=== PATIENT | female | born 1950 | race Caucasian/White ===

== ENCOUNTER 2017-05-02 16:19 | Emergency (ER) | payer OTHER ==
[~2017-05-02] VITALS: Ht 157.5 cm; Wt 90.9 kg
[~2017-05-02 16:19] MED LIST: ADVAIR 250/501 DISK IH; AMLODIPINE BESYL5 MG PO; ASPIR 8181 M1 PO; ATORVASTATIN CA10 MG PO; AUGMENTIN875 MG PO; BACLOFEN10 MG PO; Baclofen PO; CATAPRES0.1 MG PO; CEFUROXIME500 MG PO; CLARITIN10 M3 PO; CLONAZEPAM0.5 MG PO; CLONIDINE HCL0.1 MG PO; COMBIVENT RESPIM4 GM IH; COMBIVENT200 INHALA IH; CRANBERRY TABL1 EACH PO; CYMBALTA20 MG PO; CYMBALTA60 MG PO; Combivent IH; Cymbalta PO; DAILY VALUE1 EACH PO; DEPAKENE250 MG PO; DIVALPROEX SOD500 MG PO; ENDOCET 5-3251 EACH PO; FLAGYL500 MG PO; FLONASE16 G1 BOTH NARES; FLORASTOR250 MG PO; FLOVENT DISKUS1 DIS2 IH; FUROSEMIDE20 MG PO; Flonase BOTH NARES; GLIPIZIDE10 MG PO; GLUCOPHAGE1000 MG PO; GLUCOPHAGE500 MG PO; GLUCOTROL10 MG PO; Glucophage PO; Glucotrol PO; IBUPROFEN800 MG PO; JANUVIA100 MG PO; JANUVIA25 MG PO; KEFLEX500 MG PO; KETOCONAZOLE60 GM TP; KLONOPIN0.5 M1 PO; KlonoPIN PO; Klonopin PO; LANTUS 10100 UNITS/ SC; LANTUS 3 M100 UNITS1 SC; LEVAQUIN500 MG PO; LIPITOR10 MG PO; LISINOPRIL40 MG PO; LO-DOSE ASPIRIN81 M1 PO; LORAZEPAM0.5 MG PO; LYRICA150 MG PO; Lioresal PO; Lyrica PO; MELOXICAM15 MG PO; METFORMIN HCL1000 MG PO; METFORMIN HCL500 MG PO; MIRALAX, GLYCOL1 PK1 PO; MOBIC15 MG PO; MOBIC7.5 MG PO; MUCINEX D ER T1 EACH PO; MUCINEX600 MG PO; NICOTINE PATCH1 EAC2 TD; NOVOLOG PE100 UNITS/ SC; OCUVITE TABLET1 EACH PO; OXYBUTYNIN CHLOR5 MG PO; OXYCODONE-ACET1 EACH PO; PERCOCET 10/1 TABLET PO; PERCOCET 5/31 TABLET PO; PLAVIX75 MG PO; PROVENTIL,2.5 MG/3 M IH; Percocet 5/325,Endoc PO; QUETIAPINE FUM300 MG PO; SEROQUEL XR150 MG PO; SEROQUEL300 MG PO; SEROquel PO; TRILIPIX135 MG PO; Vancomycin IV; WOMEN'S 50+ DA1 EACH PO
[2017-05-02 17:39] LABS: HEMATOCRIT 40.2 % (36.0-46.0); MCH 29.8 PG (29.0-34.0); MCHC 31.3 G/DL (30.0-36.0); MEAN PLAT.VOLUME 9.9 uM^3 (9.5-12.4); PLATELET COUNT 219 K/uL (156-360); RBC DIS.WIDTH-CV 14.4 % (11.8-14.6); RBC DIS.WIDTH-SD 50.5 % (39-53); RED BLOOD COUNT 4.23 M/uL (3.80-5.20); WHITE BLOOD COUNT 11.1 K/uL (4.1-10.2)
[2017-05-02 17:50] LABS: CHLORIDE 107 mEq/L (99-109); POTASSIUM 5.2 mEq/L (3.7-5.4); SODIUM 137 mEq/L (136-147)
[2017-05-02 17:53] LABS: ANION GAP 9 MEQ/L (2-14)
[2017-05-02 17:55] LABS: GFR ESTIMATE (CALCULATED) 53 mL/min/
[2017-05-02 17:56] LABS: UREA NITROGEN (BUN) 22 mg/dL (9-23)
[2017-05-02 18:10] LABS: GLUCOSE 430 mg/dL (70-99)
[2017-05-02 20:28] LABS: ADD MIUA? YES; BILIRUBIN NEGATIVE; BLOOD NEGATIVE; COLOR YELLOW ((YELLOW)); GLUCOSE (STRIP) >=500; KETONES NEGATIVE; LEUKOCYTES SMALL; NITRITE NEGATIVE; PROTEIN (STRIP) 100; SPECIFIC GRAVITY 1.016 (1.000-1.030); UROBILINOGEN 0.2 MG/DL (0.2-1.0)
[2017-05-02 20:34] LABS: BACTERIA NONE SEEN /HPF; EPITHELIAL CELLS RARE /HPF; HYALINE CASTS 0-5 /LPF; MUCUS TRACE /LPF; UCUL ADDED? NO
[2017-05-02 20:43] LABS: POINT-OF-CARE METER ID UU13113702
[2017-05-02] MEDS ORDERED: GLUCOTROL10 MG PO (21:27)
[2017-05-02 21:44] VITALS: BP 118/30
== END 2017-05-02 21:45 | disposition home or self-care (01) ==
LOC: EME 16:19
PROVIDERS: Emergency Medicine
DX: E11.65 Type 2 diabetes mellitus with hyperglycemia (principal); Z79.84 Long term (current) use of oral hypoglycemic drugs; I10 Essential (primary) hypertension; J44.9 Chronic obstructive pulmonary disease, unspecified; Z86.73 Personal history of transient ischemic attack (TIA), and cerebral infarction without residual deficits; F32.9 Major depressive disorder, single episode, unspecified; F17.200 Nicotine dependence, unspecified, uncomplicated; Z89.411 Acquired absence of right great toe; Z79.02 Long term (current) use of antithrombotics/antiplatelets; Z79.82 Long term (current) use of aspirin
CPT/HCPCS: 71020; 80048; 81003; 82948; 85027; 87086; 99281; 99285; J7030

== ENCOUNTER 2017-05-11 22:43 | Inpatient (IN) | payer OTHER ==
[~2017-05-11] VITALS: Ht 160 cm; Wt 86.2 kg
[2017-05-11 23:18] LABS: HEMATOCRIT 39.9 % (36.0-46.0); MCH 30.6 PG (29.0-34.0); MCHC 33.1 G/DL (30.0-36.0); MCV 92.6 FL (83-99); MEAN PLAT.VOLUME 10.1 uM^3 (9.5-12.4); PLATELET COUNT 204 K/uL (156-360); RBC DIS.WIDTH-CV 14.2 % (11.8-14.6); RBC DIS.WIDTH-SD 48.3 % (39-53); RED BLOOD COUNT 4.31 M/uL (3.80-5.20); WHITE BLOOD COUNT 12.4 K/uL (4.1-10.2)
[2017-05-11 23:35] LABS: CHLORIDE 109 mEq/L (99-109); POTASSIUM 4.8 mEq/L (3.7-5.4); SODIUM 137 mEq/L (136-147)
[2017-05-11 23:38] LABS: GLUCOSE 364 mg/dL (70-99); PROTHROMBIN TIME 9.9 (9.2-11.2); PTT 22.9 (25-32)
[2017-05-11 23:39] LABS: ANION GAP 14 MEQ/L (2-14)
[2017-05-11 23:40] LABS: CARBON DIOXIDE (BICARBONATE) 18.7 MEQ/L (20-31); TOTAL BILIRUBIN 0.3 mg/dL (0.0-1.0)
[2017-05-11 23:41] LABS: ALKALINE PHOSPHATASE 129 IU/L (3-129); GFR ESTIMATE (CALCULATED) > 59 mL/min/
[2017-05-11 23:42] LABS: UREA NITROGEN (BUN) 21 mg/dL (9-23)
[2017-05-11 23:45] LABS: LIPASE 17 U/L (1.0-51.0)
[2017-05-11 23:47] LABS: TROP-I INTERPRETATION NEGATIVE; TROPONIN-I < 0.01 ng/mL (0.0-0.30)
[2017-05-12 03:21] LABS: ADD MIUA? YES; BILIRUBIN NEGATIVE; BLOOD NEGATIVE; COLOR YELLOW ((YELLOW)); GLUCOSE (STRIP) >=500; KETONES NEGATIVE; LEUKOCYTES SMALL; NITRITE NEGATIVE; PROTEIN (STRIP) 100; SPECIFIC GRAVITY 1.025 (1.000-1.030); UROBILINOGEN 0.2 MG/DL (0.2-1.0)
[2017-05-12 03:26] LABS: BACTERIA NONE SEEN /HPF; EPITHELIAL CELLS RARE /HPF; MUCUS TRACE /LPF; RED BLOOD CELLS 0-5 /HPF (0-5); UCUL ADDED? NO
[2017-05-12 04:05] LABS: SAMPLE HEMOLYSIS CHECK 0; SAMPLE ICTERIC CHECK 0; SAMPLE LIPEMIA CHECK 0
[2017-05-12 05:35] LABS: EOSINOPHIL (%) 0.4 % (0-5); EOSINOPHIL COUNT 0.1 K/uL (0-0.3); IMMATURE GRANULOCYTE (%) 0.6 % (0.0-0.7); IMMATURE GRANULOCYTE COUNT 0.1 K/uL; INSTRUMENT ABS NEUTROPHIL CT 11.1 K/uL; LYMPHOCYTE COUNT 0.8 K/uL (1.0-2.8); MCH 30.3 PG (29.0-34.0); MCHC 32.1 G/DL (30.0-36.0); MCV 94.3 FL (83-99); MEAN PLAT.VOLUME 10.3 uM^3 (9.5-12.4); MONOCYTE (%) 3.5 % (3-12); MONOCYTE COUNT 0.4 K/uL (0-0.8); NEUTROPHIL (%) 89.1 % (45-76); NEUTROPHIL COUNT 11.1 K/uL (1.8-6.4); PLATELET COUNT 180 K/uL (156-360); RBC DIS.WIDTH-CV 14.3 % (11.8-14.6); RBC DIS.WIDTH-SD 49.9 % (39-53); RED BLOOD COUNT 4.03 M/uL (3.80-5.20); WHITE BLOOD COUNT 12.5 K/uL (4.1-10.2)
[2017-05-12 05:43] LABS: CHLORIDE 112 mEq/L (99-109); POTASSIUM 5.2 mEq/L (3.7-5.4); SODIUM 140 mEq/L (136-147)
[2017-05-12 05:45] LABS: GLUCOSE 301 mg/dL (70-99)
[2017-05-12 05:47] LABS: ANION GAP 12 MEQ/L (2-14)
[2017-05-12 05:49] LABS: ALKALINE PHOSPHATASE 121 IU/L (3-129); GFR ESTIMATE (CALCULATED) > 59 mL/min/
[2017-05-12 05:50] LABS: UREA NITROGEN (BUN) 18 mg/dL (9-23)
[2017-05-12 05:58] LABS: CARBON DIOXIDE (BICARBONATE) 21.1 MEQ/L (20-31)
[2017-05-12 06:06] LABS: TOTAL BILIRUBIN 0.2 mg/dL (0.0-1.0)
[2017-05-12 06:39] LABS: LIPASE 13 U/L (1.0-51.0)
[2017-05-12 06:58] LABS: TROP-I INTERPRETATION NEGATIVE; TROPONIN-I < 0.01 ng/mL (0.0-0.30)
[2017-05-12 08:32] LABS: CARBON DIOXIDE (BICARBONATE) 20.7 MEQ/L (20-31)
[2017-05-12] MEDS ORDERED: METFORMIN HCL500 MG PO (09:58)
[2017-05-12] MEDS ORDERED: LISINOPRIL40 MG PO (09:58)
[2017-05-12] MEDS ORDERED: QUETIAPINE FUM300 MG PO (09:59)
[2017-05-12] MEDS ORDERED: RANITIDINE HCL150 MG PO (09:59)
[2017-05-12] MEDS ORDERED: LITHIUM CARBON300 M2 PO (10:00)
[2017-05-12] MEDS ORDERED: LYRICA150 MG PO (10:00)
[2017-05-12] MEDS ORDERED: FLONASE16 G1 BOTH NARES (10:00)
[2017-05-12] MEDS ORDERED: TRULICITY0.75 MG/0. SC (10:00)
[2017-05-12] MEDS ORDERED: BACLOFEN10 MG PO (10:00)
[2017-05-12] MEDS ORDERED: MELOXICAM15 MG PO (10:00)
[2017-05-12] MEDS ORDERED: CLONIDINE HCL0.1 MG PO (10:00)
[2017-05-12] MEDS ORDERED: CLONAZEPAM0.5 MG PO (10:01)
[2017-05-12] MEDS ORDERED: PERCOCET 10/1 TABLET PO (10:06)
[2017-05-12 10:22] LABS: Estimated Average Glucose 180 mg/dL (70-123)
[2017-05-12 10:25] LABS: HEMOGLOBIN A1c (GLYCOHEMOGLOB) 7.9 % HGB (Below 5.7)
[2017-05-12 14:43] VITALS: BP 138/61
[2017-05-12 16:30] LABS: POINT-OF-CARE METER ID UU14188625
[2017-05-12 19:20] VITALS: BP 137/63
[2017-05-12 21:42] LABS: POINT-OF-CARE METER ID UU14174225
[2017-05-12 23:45] VITALS: BP 153/67
[2017-05-13 01:49] LABS: POINT-OF-CARE METER ID UU14188625; POINT-OF-CARE USER ID BHSKTD
[2017-05-13 04:00] VITALS: BP 133/64
[2017-05-13 05:55] LABS: POINT-OF-CARE METER ID UU14188625
[2017-05-13 06:04] LABS: EOSINOPHIL (%) 6.5 % (0-5); EOSINOPHIL COUNT 0.5 K/uL (0-0.3); HEMATOCRIT 33.8 % (36.0-46.0); IMMATURE GRANULOCYTE (%) 0.6 % (0.0-0.7); INSTRUMENT ABS NEUTROPHIL CT 5.3 K/uL; LYMPHOCYTE COUNT 0.8 K/uL (1.0-2.8); MCH 30.3 PG (29.0-34.0); MCHC 32.2 G/DL (30.0-36.0); MCV 93.9 FL (83-99); MEAN PLAT.VOLUME 10.1 uM^3 (9.5-12.4); MONOCYTE COUNT 0.4 K/uL (0-0.8); NEUTROPHIL COUNT 5.3 K/uL (1.8-6.4); PLATELET COUNT 175 K/uL (156-360); RBC DIS.WIDTH-CV 14.4 % (11.8-14.6); RBC DIS.WIDTH-SD 49.7 % (39-53)
[2017-05-13 06:30] LABS: ALKALINE PHOSPHATASE 92 IU/L (3-129); ANION GAP 6 MEQ/L (2-14); CHLORIDE 114 MEQ/L (99-109); GFR ESTIMATE (CALCULATED) > 59 mL/min/; POTASSIUM 4.4 MEQ/L (3.7-5.4); SAMPLE HEMOLYSIS CHECK 0; SAMPLE ICTERIC CHECK 0; SAMPLE LIPEMIA CHECK 0; SODIUM 143 MEQ/L (136-147); TOTAL BILIRUBIN 0.3 MG/DL (0.0-1.0); UREA NITROGEN (BUN) 13 mg/dL (9-23)
[2017-05-13 06:31] LABS: GLUCOSE 123 mg/dL (70-99)
[2017-05-13 07:37] VITALS: BP 147/64
[2017-05-13 11:13] VITALS: BP 133/66
[2017-05-13] MEDS ORDERED: SPIRIVA1 INHALATI IH (13:17)
[2017-05-13] MEDS ORDERED: PREDNISONE10 MG PO (13:17)
[2017-05-13] MEDS ORDERED: LEVAQUIN750 MG PO (13:17)
[2017-05-13] MEDS ORDERED: VENTOLIN HFA18 GM IH (13:17)
[2017-05-14 22:32] LABS: POINT-OF-CARE METER ID UU14188625
== END 2017-05-13 15:20 | disposition home or self-care (01) | DRG 871 ==
LOC: EME → EDBD 22:43 → EME 22:43 → EDOF 05-12 03:37 → 5SOUTH 05-12 14:35
PROVIDERS: Emergency Medicine; Hospitalist; Physician Assistant Medical
DX: A41.9 Sepsis, unspecified organism (principal); E11.65 Type 2 diabetes mellitus with hyperglycemia; J18.1 Lobar pneumonia, unspecified organism; E87.2 Acidosis; E11.40 Type 2 diabetes mellitus with diabetic neuropathy, unspecified; E78.5 Hyperlipidemia, unspecified; Z86.73 Personal history of transient ischemic attack (TIA), and cerebral infarction without residual deficits; F31.9 Bipolar disorder, unspecified; F17.210 Nicotine dependence, cigarettes, uncomplicated; E66.9 Obesity, unspecified; Z68.33 Body mass index [BMI] 33.0-33.9, adult; I10 Essential (primary) hypertension; J44.0 Chronic obstructive pulmonary disease with (acute) lower respiratory infection; K59.00 Constipation, unspecified; J44.1 Chronic obstructive pulmonary disease with (acute) exacerbation; G40.909 Epilepsy, unspecified, not intractable, without status epilepticus
CPT/HCPCS: 71010; 71020; 71275; 72131; 74176; 80053; 80164; 81003; 82010; 82803; 82948; 83036; 83605; 83690; 83880; 84484; 85025; 85027; 85610; 85730; 87040; 87070; 87205; 93005; 93306; 94640; 94640 76; 94799; 99202; 99281; 99285; J0696; J1650; J1815; J2405; J2543; J3370; J7050; J7120; J7644

== ENCOUNTER 2017-05-14 20:13 | Emergency (ER) | payer OTHER ==
[~2017-05-14] VITALS: Ht 162.6 cm; Wt 83.8 kg
[~2017-05-14 20:13] MED LIST changes: +LEVAQUIN750 MG PO; +LITHIUM CARBON300 M2 PO; +PREDNISONE10 MG PO; +RANITIDINE HCL150 MG PO; +SPIRIVA1 INHALATI IH; +TRULICITY0.75 MG/0. SC; +VENTOLIN HFA18 GM IH
[2017-05-14 21:46] LABS: HEMATOCRIT 38.6 % (36.0-46.0); MCH 30.6 PG (29.0-34.0); MCHC 34.2 G/DL (30.0-36.0); MEAN PLAT.VOLUME 9.9 uM^3 (9.5-12.4); RBC DIS.WIDTH-CV 13.4 % (11.8-14.6); RBC DIS.WIDTH-SD 44.4 % (39-53); RED BLOOD COUNT 4.32 M/uL (3.80-5.20); WHITE BLOOD COUNT 12.3 K/uL (4.1-10.2)
[2017-05-14 21:47] LABS: CHLORIDE 104 mEq/L (99-109); MCV 89.4 FL (83-99); PLATELET COUNT 256 K/uL (156-360)
[2017-05-14 21:48] LABS: SODIUM 138 mEq/L (136-147)
[2017-05-14 21:49] LABS: POTASSIUM 3.4 mEq/L (3.7-5.4)
[2017-05-14 21:51] LABS: ANION GAP 14 MEQ/L (2-14)
[2017-05-14 21:52] LABS: GLUCOSE 200 mg/dL (70-99); TOTAL BILIRUBIN 0.3 mg/dL (0.0-1.0)
[2017-05-14 21:53] LABS: ALKALINE PHOSPHATASE 118 IU/L (3-129); GFR ESTIMATE (CALCULATED) > 59 mL/min/
[2017-05-14 21:55] LABS: UREA NITROGEN (BUN) 12 mg/dL (9-23)
[2017-05-15 00:56] LABS: ADD MIUA? YES; BILIRUBIN NEGATIVE; BLOOD NEGATIVE; COLOR YELLOW ((YELLOW)); GLUCOSE (STRIP) NEGATIVE; KETONES 20; LEUKOCYTES NEGATIVE; NITRITE NEGATIVE; PROTEIN (STRIP) >=500; SPECIFIC GRAVITY 1.042 (1.000-1.030); UROBILINOGEN 0.2 MG/DL (0.2-1.0)
[2017-05-15 01:01] LABS: BACTERIA NONE SEEN /HPF; EPITHELIAL CELLS RARE /HPF; MUCUS TRACE /LPF; RED BLOOD CELLS 0-5 /HPF (0-5); UCUL ADDED? NO; WHITE BLOOD CELLS 0-5 /HPF (0-5)
[2017-05-15 03:21] VITALS: BP 158/73
[2017-05-15] MEDS ORDERED: ZOFRAN4 MG PO (03:27)
[2017-05-15] MEDS ORDERED: TYLENOL WITH C1 EACH PO (03:27)
== END 2017-05-15 03:35 | disposition home or self-care (01) ==
LOC: EME 20:13
PROVIDERS: Emergency Medicine
DX: R10.30 Lower abdominal pain, unspecified (principal); R19.7 Diarrhea, unspecified; E11.65 Type 2 diabetes mellitus with hyperglycemia; Z79.84 Long term (current) use of oral hypoglycemic drugs; D72.829 Elevated white blood cell count, unspecified; I10 Essential (primary) hypertension; Z86.73 Personal history of transient ischemic attack (TIA), and cerebral infarction without residual deficits; F32.9 Major depressive disorder, single episode, unspecified; F17.200 Nicotine dependence, unspecified, uncomplicated; Z87.01 Personal history of pneumonia (recurrent)
CPT/HCPCS: 71020; 74177; 80053; 81003; 85027; 99281; 99285; J2405; J7030

== ENCOUNTER 2017-05-24 15:40 | Inpatient (IN) | payer OTHER ==
[~2017-05-24] VITALS: Ht 162.6 cm; Wt 88.8 kg
[~2017-05-24 15:40] MED LIST changes: +TYLENOL WITH C1 EACH PO; +ZOFRAN4 MG PO
[2017-05-24 16:38] LABS: BASOPHIL COUNT 0.1 K/uL (0-0.1); EOSINOPHIL (%) 2.8 % (0-5); EOSINOPHIL COUNT 0.5 K/uL (0-0.3); HEMATOCRIT 43.6 % (36.0-46.0); IMMATURE GRANULOCYTE (%) 0.9 % (0.0-0.7); IMMATURE GRANULOCYTE COUNT 0.2 K/uL; INSTRUMENT ABS NEUTROPHIL CT 13.7 K/uL; LYMPHOCYTE COUNT 2.2 K/uL (1.0-2.8); MCH 30.4 PG (29.0-34.0); MCHC 32.8 G/DL (30.0-36.0); MCV 92.6 FL (83-99); MEAN PLAT.VOLUME 9.8 uM^3 (9.5-12.4); MONOCYTE (%) 6.2 % (3-12); MONOCYTE COUNT 1.1 K/uL (0-0.8); NEUTROPHIL (%) 77.6 % (45-76); NEUTROPHIL COUNT 13.7 K/uL (1.8-6.4); PLATELET COUNT 249 K/uL (156-360); RBC DIS.WIDTH-CV 14.6 % (11.8-14.6); RBC DIS.WIDTH-SD 49.4 % (39-53); RED BLOOD COUNT 4.71 M/uL (3.80-5.20); WHITE BLOOD COUNT 17.6 K/uL (4.1-10.2)
[2017-05-24 17:02] LABS: TROP-I INTERPRETATION NEGATIVE; TROPONIN-I < 0.01 ng/mL (0.0-0.30)
[2017-05-24 17:31] LABS: CHLORIDE 110 mEq/L (99-109); SODIUM 142 mEq/L (136-147)
[2017-05-24 17:33] LABS: GLUCOSE 138 mg/dL (70-99)
[2017-05-24 17:34] LABS: ANION GAP 9 MEQ/L (2-14)
[2017-05-24 17:35] LABS: TOTAL BILIRUBIN 0.3 mg/dL (0.0-1.0)
[2017-05-24 17:36] LABS: SERUM ETHYL ALCOHOL < 10 mg/dL
[2017-05-24 17:37] LABS: GFR ESTIMATE (CALCULATED) > 59 mL/min/
[2017-05-24 17:38] LABS: ALKALINE PHOSPHATASE 97 IU/L (3-129); POTASSIUM 5.2 mEq/L (3.7-5.4)
[2017-05-24 17:39] LABS: UREA NITROGEN (BUN) 19 mg/dL (9-23)
[2017-05-24 17:40] LABS: SALICYLATE < 5.0 MG/DL (15-30)
[2017-05-24 17:41] LABS: CREATINE KINASE 39 IU/L (1-294); TOTAL CK 39 IU/L (1-294)
[2017-05-24 17:47] LABS: CK-MB 1.1 ng/mL (0.0-4.9)
[2017-05-24] MEDS ORDERED: PROVENTIL,2.5 MG/3 M IH (21:07)
[2017-05-24] MEDS ORDERED: ADVAIR 250/501 DISK IH (21:08)
[2017-05-24 21:11] LABS: ADD MIUA? YES; BILIRUBIN NEGATIVE; BLOOD NEGATIVE; COLOR YELLOW ((YELLOW)); GLUCOSE (STRIP) NEGATIVE; KETONES NEGATIVE; LEUKOCYTES NEGATIVE; NITRITE NEGATIVE; PROTEIN (STRIP) 100; SPECIFIC GRAVITY 1.012 (1.000-1.030); UROBILINOGEN 0.2 MG/DL (0.2-1.0)
[2017-05-24] MEDS ORDERED: SPIRIVA1 INHALATI IH (21:15)
[2017-05-24] MEDS ORDERED: PROAIR HFA8.5 GM IH (21:16)
[2017-05-24 21:18] LABS: BACTERIA NONE SEEN /HPF; EPITHELIAL CELLS NONE SEEN /HPF; HYALINE CASTS 0-5 /LPF; MUCUS TRACE /LPF; RED BLOOD CELLS 0-5 /HPF (0-5); UCUL ADDED? NO; WHITE BLOOD CELLS 0-5 /HPF (0-5)
[2017-05-24 21:29] LABS: AMPHETAMINE NEGATIVE (500 ng/mL); BENZODIAZEPINES NEGATIVE (150 ng/mL); COCAINE NEGATIVE (150 ng/mL); METHAMPHETAMINE NEGATIVE (500 ng/mL); OPIATES (MORPHINE) NEGATIVE (100 ng/mL); PHENCYCLIDINE NEGATIVE (25 ng/mL); THC CANNABINOIDS NEGATIVE (50 ng/mL); TRICYCLIC ANTIDEPRESSANTS PRESUMPTIVE POSITIVE (300 ng/mL)
[2017-05-24 21:30] LABS: BARBITURATES NEGATIVE (200 ng/mL); INTERNAL CONTROLS VALID? YES; METHADONE NEGATIVE (200 ng/mL); OXYCODONE PRESUMPTIVE POSITIVE (100 ng/mL); PROPOXYPHENE NEGATIVE (300 ng/mL)
[2017-05-24 23:03] LABS: POINT-OF-CARE METER ID UU14188577
[2017-05-25 01:10] LABS: TROP-I INTERPRETATION NEGATIVE; TROPONIN-I < 0.01 ng/mL (0.0-0.30)
[2017-05-25 04:06] VITALS: BP 126/67
[2017-05-25 06:59] LABS: HEMATOCRIT 40.6 % (36.0-46.0); MCH 31.5 PG (29.0-34.0); MCHC 33.7 G/DL (30.0-36.0); MCV 93.3 FL (83-99); MEAN PLAT.VOLUME 10.4 uM^3 (9.5-12.4); PLATELET COUNT 267 K/uL (156-360); RBC DIS.WIDTH-CV 14.8 % (11.8-14.6); RBC DIS.WIDTH-SD 51.4 % (39-53); RED BLOOD COUNT 4.35 M/uL (3.80-5.20); WHITE BLOOD COUNT 20.6 K/uL (4.1-10.2)
[2017-05-25 07:16] LABS: ANION GAP 8 MEQ/L (2-14); CHLORIDE 111 MEQ/L (99-109); GFR ESTIMATE (CALCULATED) > 59 mL/min/; GLUCOSE 141 mg/dL (70-99); POTASSIUM 4.6 MEQ/L (3.7-5.4); SAMPLE HEMOLYSIS CHECK 0; SAMPLE ICTERIC CHECK 0; SAMPLE LIPEMIA CHECK 0; SODIUM 142 MEQ/L (136-147); UREA NITROGEN (BUN) 17 mg/dL (9-23)
[2017-05-25 07:20] LABS: TROPONIN-I < 0.01 ng/mL (0.0-0.30)
[2017-05-25 07:40] LABS: TROP-I INTERPRETATION NEGATIVE
[2017-05-25 08:05] VITALS: BP 170/88
[2017-05-25 12:26] VITALS: BP 149/83
[2017-05-25 16:41] VITALS: BP 142/68
[2017-05-25 16:59] LABS: POINT-OF-CARE METER ID UU14188577
[2017-05-25 20:03] VITALS: BP 169/74
[2017-05-25 21:15] LABS: POINT-OF-CARE METER ID UU14188577
[2017-05-25 23:44] VITALS: BP 148/71
[2017-05-26 08:10] LABS: HEMATOCRIT 37.7 % (36.0-46.0); MCH 30.5 PG (29.0-34.0); MCHC 32.9 G/DL (30.0-36.0); MCV 92.9 FL (83-99); MEAN PLAT.VOLUME 10.1 uM^3 (9.5-12.4); PLATELET COUNT 226 K/uL (156-360); RBC DIS.WIDTH-CV 14.1 % (11.8-14.6); RBC DIS.WIDTH-SD 48.5 % (39-53); RED BLOOD COUNT 4.06 M/uL (3.80-5.20); WHITE BLOOD COUNT 13.9 K/uL (4.1-10.2)
[2017-05-26 08:32] VITALS: BP 150/79
[2017-05-26 08:33] LABS: ANION GAP 7 MEQ/L (2-14); CHLORIDE 108 MEQ/L (99-109); GFR ESTIMATE (CALCULATED) > 59 mL/min/; GLUCOSE 173 mg/dL (70-99); POTASSIUM 5.3 MEQ/L (3.7-5.4); SAMPLE HEMOLYSIS CHECK 0; SAMPLE ICTERIC CHECK 0; SAMPLE LIPEMIA CHECK 0; SODIUM 139 MEQ/L (136-147); UREA NITROGEN (BUN) 16 mg/dL (9-23)
[2017-05-26 11:10] VITALS: BP 140/77
[2017-05-26 12:00] LABS: POINT-OF-CARE METER ID UU14117124
[2017-05-26 15:42] VITALS: BP 198/86
[2017-05-26 16:05] LABS: POINT-OF-CARE METER ID UU14117124
[2017-05-26 19:21] VITALS: BP 137/76
[2017-05-26 21:44] LABS: POINT-OF-CARE METER ID UU14208753
[2017-05-26 23:13] VITALS: BP 162/73
[2017-05-27 03:43] VITALS: BP 138/66
[2017-05-27 06:03] LABS: HEMATOCRIT 36.6 % (36.0-46.0); MCH 30.9 PG (29.0-34.0); MCHC 33.6 G/DL (30.0-36.0); MEAN PLAT.VOLUME 10.5 uM^3 (9.5-12.4); PLATELET COUNT 201 K/uL (156-360); RBC DIS.WIDTH-CV 14.1 % (11.8-14.6); RBC DIS.WIDTH-SD 47.5 % (39-53); RED BLOOD COUNT 3.98 M/uL (3.80-5.20); WHITE BLOOD COUNT 10.7 K/uL (4.1-10.2)
[2017-05-27 06:36] LABS: ANION GAP 11 MEQ/L (2-14); CHLORIDE 109 MEQ/L (99-109); GFR ESTIMATE (CALCULATED) > 59 mL/min/; GLUCOSE 139 mg/dL (70-99); SAMPLE HEMOLYSIS CHECK 0; SAMPLE ICTERIC CHECK 0; SAMPLE LIPEMIA CHECK 0; SODIUM 141 MEQ/L (136-147); UREA NITROGEN (BUN) 15 mg/dL (9-23)
[2017-05-27 06:39] LABS: POTASSIUM 4.2 MEQ/L (3.7-5.4)
[2017-05-27 06:45] LABS: POINT-OF-CARE METER ID UU14208753
[2017-05-27 08:12] VITALS: BP 135/63
[2017-05-27 11:32] LABS: POINT-OF-CARE METER ID UU14208753
[2017-05-27 11:51] VITALS: BP 140/77
[2017-05-27 16:19] LABS: POINT-OF-CARE METER ID UU14208753
[2017-05-27 16:27] VITALS: BP 141/64
[2017-05-27 19:34] VITALS: BP 154/66
[2017-05-27 23:48] VITALS: BP 126/60
[2017-05-28 04:14] VITALS: BP 100/50
[2017-05-28 06:01] VITALS: BP 120/61
[2017-05-28 06:26] LABS: POINT-OF-CARE METER ID UU14208753
[2017-05-28 09:16] LABS: POINT-OF-CARE METER ID UU13113675
[2017-05-28 09:47] VITALS: BP 115/55
[2017-05-28 11:25] LABS: POINT-OF-CARE METER ID UU14208753
[2017-05-28 15:38] VITALS: BP 122/58
[2017-05-28 16:10] LABS: POINT-OF-CARE METER ID UU14208753
[2017-05-28 19:39] VITALS: BP 138/63
[2017-05-29 00:30] VITALS: BP 111/53
[2017-05-29 06:38] LABS: POINT-OF-CARE METER ID UU14208753
[2017-05-29 07:36] LABS: METH RESISTANT S AUREUS PCR NEGATIVE (NEGATIVE); PROBE CHECK PASS; SPECIMEN PROCESSING CONTROL PASS
[2017-05-29 07:51] VITALS: BP 119/57
[2017-05-29 10:10] LABS: MCH 30.7 PG (29.0-34.0); MCHC 32.2 G/DL (30.0-36.0); MCV 95.2 FL (83-99); MEAN PLAT.VOLUME 10.4 uM^3 (9.5-12.4); PLATELET COUNT 217 K/uL (156-360); RBC DIS.WIDTH-CV 14.1 % (11.8-14.6); RBC DIS.WIDTH-SD 48.9 % (39-53); RED BLOOD COUNT 3.78 M/uL (3.80-5.20); WHITE BLOOD COUNT 10.7 K/uL (4.1-10.2)
[2017-05-29 10:44] LABS: ANION GAP 8 MEQ/L (2-14); CHLORIDE 106 MEQ/L (99-109); GFR ESTIMATE (CALCULATED) 48 mL/min/; GLUCOSE 230 mg/dL (70-99); POTASSIUM 4.3 MEQ/L (3.7-5.4); SAMPLE HEMOLYSIS CHECK 0; SAMPLE ICTERIC CHECK 0; SAMPLE LIPEMIA CHECK 0; SODIUM 137 MEQ/L (136-147); UREA NITROGEN (BUN) 32 mg/dL (9-23)
[2017-05-29 11:04] VITALS: BP 115/58
[2017-05-29 11:19] LABS: POINT-OF-CARE METER ID UU14117124
[2017-05-29 12:34] VITALS: BP 153/66
[2017-05-29] MEDS ORDERED: ASPIR 8181 M1 PO (14:57)
[2017-05-29] MEDS ORDERED: NICOTINE PATCH1 EAC2 TD (14:57)
[2017-05-29 15:15] VITALS: BP 132/66
[2017-05-29 15:40] LABS: POINT-OF-CARE METER ID UU14117124
== END 2017-05-29 16:44 | disposition home health service (06) | DRG 563 ==
LOC: EME 15:40 → ENRESERV 20:44 → 3EAST 20:44 → EDOF 20:44 → ENRESERV 21:30 → 3EAST 22:19
PROVIDERS: Emergency Medicine; Hospitalist; Physician Assistant
PROC: 0QSGXZZ Reposition Right Tibia, External Approach (ICD-10-PCS; 2017-05-24)
PROC: 0QSGXZZ Reposition Right Tibia, External Approach (ICD-10-PCS; principal; 2017-05-28)
DX: S82.851A Displaced trimalleolar fracture of right lower leg, initial encounter for closed fracture (principal); F05 Delirium due to known physiological condition; M62.82 Rhabdomyolysis; F23 Brief psychotic disorder; F11.20 Opioid dependence, uncomplicated; E11.42 Type 2 diabetes mellitus with diabetic polyneuropathy; E78.5 Hyperlipidemia, unspecified; F22 Delusional disorders; F31.9 Bipolar disorder, unspecified; W01.0XXA Fall on same level from slipping, tripping and stumbling without subsequent striking against object, initial encounter; G89.4 Chronic pain syndrome; I10 Essential (primary) hypertension; F17.210 Nicotine dependence, cigarettes, uncomplicated; J30.2 Other seasonal allergic rhinitis; K21.9 Gastro-esophageal reflux disease without esophagitis; M48.00 Spinal stenosis, site unspecified; M54.5 Low back pain; T40.601A Poisoning by unspecified narcotics, accidental (unintentional), initial encounter; E66.9 Obesity, unspecified; Z79.82 Long term (current) use of aspirin; Y92.091 Bathroom in other non-institutional residence as the place of occurrence of the external cause; Z89.411 Acquired absence of right great toe; Z90.49 Acquired absence of other specified parts of digestive tract; Z86.73 Personal history of transient ischemic attack (TIA), and cerebral infarction without residual deficits; Z79.84 Long term (current) use of oral hypoglycemic drugs; Z88.5 Allergy status to narcotic agent; Z68.33 Body mass index [BMI] 33.0-33.9, adult
CPT/HCPCS: 70450; 71010; 73590; 73600; 73610; 76000; 80048; 80053; 80178; 81003; 82550; 82553; 82948; 83605; 84484; 85025; 85027; 87641; 93005; 94640; 94640 76; 94799; 99202; 99281; 99285; G0480; J0330; J1100; J1644; J1815; J2310; J2405; J3010; J7030